=== PATIENT | male | born 1950 | race Caucasian/White ===

== ENCOUNTER 2023-10-28 14:14 | Outpatient (CLI) | payer MEDICARE, SELFPAY ==
--- NOTE | 2023-10-28 14:32 | XRR_ITS ---
PROCEDURE INFORMATION: Exam: XR Lumbosacral Spine Exam date and time: 10/28/2023 2:46 PM Age: 73 years old Clinical indication: Low back pain; Patient HX: Patient fell off roof in 2011 and has had chronic lower back pain since then. 2 years ago patient fell on ice and started having worse pain TECHNIQUE: Imaging protocol: Radiologic exam of the lumbosacral spine. Views: 2 or 3 views. COMPARISON: No relevant prior studies available. FINDINGS: Bones/joints: The bony structures demonstrate diffuse osteopenia. There is a compression fracture involving the superior endplate of the L2 vertebral body. The fracture comprises about 30% of vertebral body height. Vertebral body spurring can be seen at multiple levels along with facet arthropathy. Soft tissues: Unremarkable. XR/XR lumbar spine 2-3V* [id number] IMPRESSION: 1. L2 compression fracture of uncertain age with osteoporosis 2. Multilevel arthritic changes
== END 2023-10-28 14:15 | disposition home or self-care (01) ==
PROVIDERS: Visit Provider Orthopaedic Surgery
DX: M80.88XA Other osteoporosis with current pathological fracture, vertebra(e), initial encounter for fracture (principal); M48.062 Spinal stenosis, lumbar region with neurogenic claudication
CPT/HCPCS: 72100; 99204

== ENCOUNTER → 2024-01-08 10:22 | Outpatient (BNVA) | payer MEDICARE, SELFPAY | PROVIDERS: Visit Provider Orthopaedic Surgery | DX: M48.062 Spinal stenosis, lumbar region with neurogenic claudication | CPT/HCPCS: 99214 ==

== ENCOUNTER → 2024-08-19 13:05 | Outpatient (BNVA) | payer MEDICARE, SELFPAY | PROVIDERS: Visit Provider Orthopaedic Surgery | DX: M54.2 Cervicalgia (principal) | CPT/HCPCS: 72050; 80053; 81001; 85025; 87086; 99214 ==

== ENCOUNTER → 2024-10-01 11:50 | Outpatient (BNVA) | payer MEDICARE, SELFPAY | PROVIDERS: Visit Provider Family Medicine | DX: Z01.818 Encounter for other preprocedural examination (principal) | CPT/HCPCS: 80053; 81003; 85007; 85027; 93005 ==

== ENCOUNTER 2024-11-01 09:22 | Inpatient (IN) | payer MEDICARE, SELFPAY ==
--- NOTE | 2024-10-31 11:37 | ANES.PREANE2 ---
Pre-Anesthetic Assessment Height/Weight: Height 6 ft Preop Diagnosis: Cervical spondylosis Operation Date: 11/01/24 07:00 Proposed Procedures p Anterior Cervical Discectomy & Fusion ACDF w/ Anterior Interbody Fusion w/ Cage w/ Instrumentation w/ Allograft w/ Navigation(Not Applicable) - Pepe Lind, DO Was Beta Isis taken within 24 hours: N/A Was Clonidine taken within 24 hours: N/A Social No alcohol and No tobacco Exam alert, clear to auscultation bilaterally and regular rate & rhythm Airway Submandibular: within normal limits Cervical ROM: within normal limits Mallampati: Class III Dentition: full Comments: Comments: Few missing teeth, mouth opening appears limited Anesthetic Plan ASA status: 3 Anesthesia: General Other: Patient had delayed emergence from prior anesthetic. Patient reportedly was having a cardioversion for A-fib and was given a cocktail of front. Next thing he knew he woke up he had a temp of 105 with ice packs all over him NPO since yesterday evening History of A-fib, on chronic Eliquis. Last taken 10/26/2024 Labs reviewed and acceptable for procedure EKG showing A-fib Plan for general anesthesia Medications/Allergies Home Medications ?Medication ?Instructions ?Recorded ?Confirmed ?Last Taken ?Type acetaminophen 500 mg capsule 500 mg PO Q6H PRN Pain 10/28/23 10/29/24 3 Weeks Ago History ~10/08/24 apixaban 5 mg tablet (Eliquis) 5 mg PO BID 10/28/23 10/29/24 10/26/24 History calcium carbonate (Calcium 500) 500 mg PO .every other day 10/28/23 10/29/24 10/08/24 History cholecalciferol (vitamin D3) 25 25 mcg PO .every other day 10/28/23 10/29/24 10/08/24 History mcg (1,000 unit) capsule diltiazem HCl 180 mg 180 mg PO DAILY 10/28/23 10/29/24 10/27/24 History capsule,extended release 24 hr lysine 500 mg tablet (L-Lysine) 500 mg PO DAILY 10/28/23 10/29/24 10/10/24 History multivitamin (Daily Multi-Vitamin 1 tab PO DAILY 10/28/23 10/29/24 10/10/24 History tablet) omega 0-yvo-rxr-fish oil 1,000 mg 1 cap PO DAILY 10/28/23 10/29/24 10/10/24 History (120 mg-180 mg) capsule (Fish Oil) turmeric 400 mg capsule 400 mg PO DAILY 10/01/24 10/29/24 10/10/24 History Bone Growth Stimulator #1 ea 10/26/24 Unknown Rx Allergies Allergy/AdvReac Type Severity Reaction Status Date / Time fentanyl Allergy Mild Unknown Verified 10/01/24 12:05 [facility] Anesthesia Social History Smoking and tobacco/nicotine status: never used tobacco/nicotine Data Anesthesia Cardiac Studies: No Data to Display
[2024-11-01] VITALS (22 sets, daily range): BP systolic 107–171; BP diastolic 74–117; PULSE 60–94; RESP 13–23; TEMP 36.1–36.8; O2SAT 88–97; BMI 33.9
--- NOTE | 2024-11-01 | XR_ITS ---
WS: [id number] XR cervical spine 3V* [id number] REASON FOR EXAM: OR PICS FINDINGS: Plate and screw fixation with interbody fusion devices C3-C7. Surgical appliances are intact and in proper position and alignment. XR/XR cervical spine 3V* [id number] IMPRESSION: Anterior cervical fusion without abnormality as above.
[2024-11-01] MEDS: sodium chloride 0.9% 1,000 ML 30 ML IV (06:13)
--- NOTE | 2024-11-01 06:40 | W.PM.OPSFHP ---
Same Day Surgery H&P Indication for Procedure/HPI DATE OF PROCEDURE: November 01, 2024 CHIEF COMPLAINT/INDICATIONFOR SURGICAL PROCEDURE: Neck and arm pain PREOP DIAGNOSIS: Cervical stenosis with radiculopathy and myelopathy PLANNED PROCEDURE: Operation Date: 11/01/24 07:00 Proposed Procedures p Anterior Cervical Discectomy & Fusion ACDF w/ Anterior Interbody Fusion w/ Cage w/ Instrumentation w/ Allograft w/ Navigation(Not Applicable) - Pepe Lind, DO Medications/Allergies* Home Medications ?Medication ?Instructions ?Recorded ?Confirmed ?Type acetaminophen 500 mg capsule 500 mg PO Q6H PRN Pain 10/28/23 10/29/24 History apixaban 5 mg tablet (Eliquis) 5 mg PO BID 10/28/23 10/29/24 History calcium carbonate (Calcium 500) 500 mg PO .every other day 10/28/23 10/29/24 History cholecalciferol (vitamin D3) 25 25 mcg PO .every other day 10/28/23 10/29/24 History mcg (1,000 unit) capsule diltiazem HCl 180 mg 180 mg PO DAILY 10/28/23 10/29/24 History capsule,extended release 24 hr lysine 500 mg tablet (L-Lysine) 500 mg PO DAILY 10/28/23 10/29/24 History multivitamin (Daily Multi-Vitamin 1 tab PO DAILY 10/28/23 10/29/24 History tablet) omega 1-gfy-hav-fish oil 1,000 mg 1 cap PO DAILY 10/28/23 10/29/24 History (120 mg-180 mg) capsule (Fish Oil) turmeric 400 mg capsule 400 mg PO DAILY 10/01/24 10/29/24 History Allergies/Adverse Reactions Allergy/AdvReac Type Severity Reaction Status Date / Time fentanyl Allergy Mild Unknown Verified 10/01/24 12:05 Current Medications: Generic Name Dose Route Start Last Admin Trade Name Freq PRN Reason Stop Dose Admin Sodium Chloride 1,000 mls @ 30 mls/hr 11/01/24 06:00 11/01/24 06:13 Sodium Chloride 0.9% IV 11/02/24 05:59 30 mls/hr .Q24H TINO Administration Pertinent History/Comorbid Conditions* Social History Smoking and tobacco/nicotine status: never used tobacco/nicotine Pertinent Exam Findings alert, oriented x 3 and procedure specific exam findings Recommendations Surgery/Procedure today Coding Level of Care Code Acute Code for g Fwd
[2024-11-01] MEDS: ceFAZolin 2,000 mg SDV 2000 MG IVP ×3 (06:55→22:24)
[2024-11-01] MEDS: lidocaine-epi 1% 20 mL INJ INJECTION (07:40)
--- NOTE | 2024-11-01 09:44 | P.OP_ITS ---
Operative Report Date of procedure: November 01, 2024 Pre-op diagnosis: Cervical stenosis with myelopathy and radiculopathy Post-op diagnosis: same Procedure done: 1. Anterior discectomy C3/4 2. Anterior discectomy C4/5 3. Anterior diskectomy C5/6 4. Anterior discectomy C6/7 5. Insertion of cage C3/4 6. Insertion of cage C4/5 7. Insertion of cage C5/6 8. Insertion of Cage C6/7 9. Instrumentation with anterior plate from C3-C7 10. Use of allograft Surgeon: Pepe Lind DO Estimated blood loss (mL): 50 Procedure: 1. Anterior discectomy C3/4 2. Anterior discectomy C4/5 3. Anterior diskectomy C5/6 4. Anterior discectomy C6/7 5. Insertion of cage C3/4 6. Insertion of cage C4/5 7. Insertion of cage C5/6 8. Insertion of Cage C6/7 9. Instrumentation with anterior plate from C3-C7 10. Use of allograft The patient was taken to the operating room, where he underwent general endotracheal anesthesia without complications. He was then positioned supine on the operating table, and all areas of impingement were well padded. The arms were carefully padded and tucked at his sides. A roll was placed between the shoulder blades.. An x-ray was done to determine the appropriate level for the skin incision. The entire neck was then sterilely prepped and draped in the usual fashion. Neuromonitoring was attached prior to prepping. A transverse skin incision was made and carried down to the platysma muscle. This was then split in line with its fibers. Blunt dissection was carried down medial to the carotid sheath and lateral to the trachea and esophagus until the anterior cervical spine was visualized. A needle was placed into a disc and an x-ray was done to determine its location. The longus colli muscles were then elevated bilaterally with the electrocautery unit. Self-retaining retractors were placed deep to the longus colli muscle. Attention was brought to the C3/4 level that was confirmed on x-ray. A caspar pin was placed into the C3 vertebrae and the C4 vertebrae. The disk space was then distracted. The microscope was then brought in. A radical anterior discectomies were performed at C3/4. This included complete removal of the anterior annulus, nucleus, and posterior annulus. The posterior longitudinal ligament was removed as were the posterior osteophytes. Foraminotomies were then accomplished bilaterally. This was done using a high speed blair, kerrison rongeurs and curretes Once all of this was accomplished, the curved currette was used to check for any residual compression. The central canal was wide open as were the foramen. A high-speed bur was used to remove the cartilaginous endplates above and below the interspace. Bleeding cancellous bone was exposed. The disc space were measured and appropriate size cage were placed sterilely onto the field. Allograft graft was packed into the cages. The cage was then placed and there was good juxtaposition against the bleeding decorticated surfaces and good distraction of each interspace. Attention was brought to the next interspace. The Humboldt pins were removed. Bone wax was used to prevent any bleeding from occurring at the pin sites. Attention was brought to the C4/5 level that was confirmed on x-ray. A caspar pin was placed into the C4 vertebrae and the C5 vertebrae. The disk space was then distracted. The microscope was then brought in. A radical anterior discectomies were performed at C4/5. This included complete removal of the anterior annulus, nucleus, and posterior annulus. The posterior longitudinal ligament was removed as were the posterior osteophytes. Foraminotomies were then accomplished bilaterally. This was done using a high speed blair, kerrison ro ngeurs and curretes Once all of this was accomplished, the curved currette was used to check for any residual compression. The central canal was wide open as were the foramen. A high-speed bur was used to remove the cartilaginous endplates above and below the interspace. Bleeding cancellous bone was exposed. The disc space were measured and appropriate size cage were placed sterilely onto the field. Allograft graft was packed into the cages. The cage was then placed and there was good juxtaposition against the bleeding decorticated surfaces and good distraction of each interspace. Attention was brought to the next interspace. The Humboldt pins were removed. Bone wax was used to prevent any bleeding from occurring at the pin sites. Attention was brought to the C5/6 level that was confirmed on x-ray. A caspar pin was placed into the C5 vertebrae and the C6 vertebrae. The disk space was then distracted. The microscope was then brought in. A radical anterior discectomies were performed at C5/6. This included complete removal of the anterior annulus, nucleus, and posterior annulus. The posterior longitudinal ligament was removed as were the posterior osteophytes. Foraminotomies were then accomplished bilaterally. This was done using a high speed blair, kerrison rongeurs and curretes Once all of this was accomplished, the curved currette was used to check for any residual compression. The central canal was wide open as were the foramen. A high-speed bur was used to remove the cartilaginous endplates above and below the interspace. Bleeding cancellous bone was exposed. The disc space were measured and appropriate size cage were placed sterilely onto the field. Allograft graft was packed into the cages. The cage was then placed and there was good juxtaposition against the bleeding decorticated surfaces and good distraction of each interspace. Attention was brought to the next interspace. The Humboldt pins were removed. Bone wax was used to prevent any bleeding from occurring at the pin sites. Attention was brought to the C6/7 level that was confirmed on x-ray. A caspar pin was placed into the C6 vertebrae and the C7 vertebrae. The disk space was then distracted. The microscope was then brought in. A radical anterior discectomies were performed at C6/7. This included complete removal of the anterior annulus, nucleus, and posterior annulus. The posterior longitudinal ligament was removed as were the posterior osteophytes. Foraminotomies were then accomplished bilaterally. This was done using a high speed blair, kerrison rongeurs and curretes Once all of this was accomplished, the curved currette was used to check for any residual compression. The central canal was wide open as were the foramen. A high-speed bur was used to remove the cartilaginous endplates above and below the interspace. Bleeding cancellous bone was exposed. The disc space were measured and appropriate size cage were placed sterilely onto the field. Allograft graft was packed into the cages. The cage was then placed and there was good juxtaposition against the bleeding decorticated surfaces and good distraction of each interspace. The Humboldt pins were removed. Bone wax was used to prevent any bleeding from occurring at the pin sites. The appropriate size anterior cervical locking plate was chosen and bent into gentle lordosis. Two screws were then placed into each of the vertebral bodies at C3, C4, C5, C6 and C7. There was excellent purchase. A final x-ray was done confirming good position of the hardware and Cages. The locking screws were then applied, also with excellent purchase. Following a final copious irrigation, there was good hemostasis and no dural leaks. The carotid pulse was strong. The wounds were then closed in layers using 2-0 Vicryl suture for the platysma muscle, 2-0 Vicryl suture for the subcutaneous tissue, and 4-0 monocryl suture in a subcuticular skin closure. Glue was placed followed by application of a sterile dressing. The drain was hooked to bulb suction. A soft collar was applied. The patient was then carefully returned to the supine position on his hospital bed where he was reversed and extubated and taken to the recovery room having tolerated the procedure well.
--- NOTE | 2024-11-01 10:20 | PC.NURSE ---
0938 - pt able to move all ext
--- NOTE | 2024-11-01 10:34 | ANE.PACU2 ---
Inpatient post-anesthesia follow up: Airway intact: Yes Vital signs: Temperature 97.8 F Pulse Rate 85 Respiratory Rate 17 Blood Pressure 136/88 Pulse Oximetry 94 Oxygen Delivery Me thod Room Air Oxygen Flow Rate 8 Fraction of Inspir ed Oxygen Hydration adequate: Yes Nausea and vomiting: No Pain level: 1 Mental status: Baseline
--- NOTE | 2024-11-01 10:48 | PC.NURSE ---
1038- patient accepted into room 271 - via Adrienne RN - multiple family at side - no distress noted to pt upon this nurse exiting room - hemovac compressed with scant amount of serosang drainage noted - all ext moveable - BP 133/90 - pulse 64 - 92% RA - 97.6
[2024-11-01] MEDS: lactated ringers 1,000 ML 90 ML IV ×2 (11:09→21:11)
[2024-11-01] MEDS: calcium carbonate 500 mg Chew Tablet PO (11:09)
[2024-11-01] MEDS: dilTIAZem ER (24HR) 180 mg Capsule PO (14:12)
--- OUTSIDE RECORDS SUMMARY | 2024-11-01 14:57 | XMS_ITS ---
Author Organization [facility] Address [address] [place] [address] Care Team Providers Care Cell Builder Name Role Phone Robert Ruiz MD Primary Care Provider Anthony Jacob Unavailable [phone] Migration, Provider Unavailable Unavailable Allergies Allergen (clinical drug ingredient) Drug/Non Drug Allergy documented on EMR Reaction Allergy Type Onset Date Status fentanyl Fentanyl Unknown Drug Allergy Active midazolam Midazolam Unknown Drug Allergy Active REASON FOR VISIT [facility] Medications Medication SIG (Take, Route, Frequency, Duration) Notes Start Date End Date Status Multivitamin *Pick strength-f orm from [facility] for eRX* Active Vitamin D3 *Pick strength-f orm from [facility] for eRX* Active Tylenol Extra Strength *Pick strength-form from [facility] for eRX* Active dilTIAZem HCl *Pick strength-f orm from [facility] for eRX* Active Eliquis *Pick strength-f orm from [facility] for eRX* Active Turmeric *Pick strength-f orm from [facility] for eRX* Active Calcium 500 *Reorder from [facility] for eRx and Interaction Alerts* Active Fish Oil *Pick strength-f orm from [facility] for eRX* Active Lysine *Pick strength-f orm from [facility] for eRX* Active Encounters Encounter Location Date Provider Diagnosis Migrated_Facility 0 0 06/27/2024 Provider Migration Plan Of Treatment Next Appt Details Provider Name:Anthony Clements, 11/08/2024 09:40:00 AM, [address], [place], [address], Provider Name:Abdiaziz Ruiz, 0 12/20/2024 09:15:00 AM, [address] [place], [address], Progress Notes * Willy GLEZDOB:1950 (74 yo M)Acc No.[id number]:06/27/2024 Patient:?Willy GLEZ :1950???Age:73 Y???Sex:Male Address:[address] [place] [address] Subjective: * Chief Complaints: * ???[facility] * Medical History:? * Surgical History:?appendecto my arm surgery bunion removal double hernia surgery right hand surgery Skin Cancer Removal * Hospitalization/Major Diagno stic Procedure:? * Family History:?Migrated Fam chelsea History: : Cancer, D iabetes, H eart disease, H igh blood pressure.? * Social History:?Migrated Social History:?Migrated Social History: Alcoholic beverages? - No, C urrently on disability? - No, D rug or substance abuse? - No, M arital Status - , N onprescription drug use? - No, P articipation in detoxification or rehabilitation - No, S moking - No, W orking currently? - No. * Medications:?TakingCalcium 5 00 , Notes to Pharmacist: *Reorder from [facility] for eRx and Interaction Alerts*Turmeric , Notes to Pharmacist: *Pick strength-form from [facility] for eRX*dilTIAZem HCl , Notes to Pharmacist: *Pick strength-form from [facility] for eRX*Tylenol Extra Strength , Notes to Pharmacist: *Pick strength- form from [facility] for eRX*Fish Oil , Notes to Pharmacist: *Pick strength-form from [facility] for eRX*Vitamin D3 , Notes to Pharmacist: *Pick strength-form from [facility] for eRX*Lysine , Notes to Pharmacist: *Pick strength-form from [facility] for eRX*Eliquis , Notes to Pharmacist: *Pick strength-form from [facility] for eRX*Multivitamin , Notes to Pharmacist: *Pick strength-form from [facility] for eRX*Taking Calcium 500 , Notes to Pharmacist: *Reorder from [facility] for eRx and Interaction Alerts*Taking Turmeric , Notes to Pharmacist: *Pick strength-form from [facility] for eRX*Taking dilTIAZem HCl , Notes to Pharmacist: *Pick strength-form from [facility] for eRX*Taking Tylenol Extra Strength , Notes to Pharmacist: *Pick strength-form from [facility] for eRX*Taking Fish Oil , Notes to Pharmacist: *Pick strength-form from [facility] for eRX*Taking Vitamin D3 , Notes to Pharmacist: *Pick strength-form from [facility] for eRX*Taking Lysine , Notes to Pharmacist: *Pick strength-form from [facility] for eRX*Taking Eliquis , Notes to Pharmacist: *Pick strength-form from [facility] for eRX*Taking Multivitamin , Notes to Pharmacist: *Pick strength-form from [facility] for eRX* * Allergies:?Midazolam: Allerg yFentanyl: Allergy Objective: * Vitals:? * Physical Examination:? Assessment: Plan: * Treatment: * Procedure Codes:? * * Date:?
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
--- OUTSIDE RECORDS SUMMARY | 2024-11-01 14:57 | XMS_ITS ---
Author Organization [facility] Address [address] [place] [address] Care Team Providers Care Career Development Coordinator Name Role Phone Robert Ruiz MD Primary Care Provider Anthony Jacob Unavailable [phone] Allergies Allergen (clinical drug ingredient) Drug/Non Drug Allergy documented on EMR Reaction Allergy Type Onset Date Status fentanyl Fentanyl Unknown Drug Allergy Active midazolam Midazolam Unknown Drug Allergy Active REASON FOR VISIT 4-6 weeks w/ RK Medications Medication SIG (Take, Route, Frequency, Duration) Notes Start Date End Date Status Eliquis 5 MG 1 tablet Orally Twice a day Not-Taking Cholecalciferol 25 MCG (1000 UT) 1 capsule Orally every other day Not-Taking Vitamin D3 1000 UNIT 1 capsule Orally every other day *Pick strength-form from [facility] for eRX* Active Multivitamin 1 tab every [...] 6 hrs Active Turmeric *Pick strength-form from [facility] for eRX* Not-Taking Social History Tobacco Use: [...] (Standard) Question Answer Notes Tobacco use: Nonsmoker Vital Signs Height 72 in 09/06/2024 Weight 255 lbs 09/06/2024 BMI 34.58 kg/m2 09/06/2024 Height-cm 182.88 cm 09/06/2024 Weight-kg 115.67 kg 09/06/2024 Encounters Encounter Location Date Provider Diagnosis [facility] [address] [place] [address] 09/06/2024 Anthony Clements Chronic pain syndrom e G89.4 ; DDD (degenerative disc disease), cervical M50.30 ; Degeneration of intervertebral disc of lumbar region with discogenic back pain and lower extremity pain M51.362 ; Radiculopathy, lumbosacral region M54.17 ; Spondylosis without myelopathy or radiculopathy, lumbosacral region M47.817 and Spinal stenosis of lumbar region with neurogenic claudication M48.062 Assessments Encounter Date Diagnosis (ICD Code) Assessment Notes Treatment Notes Treatment Clinical Notes Section Notes 09/06/2024 Chronic pain syndrome (ICD-10 - G89.4) [...] lower extremity pain (ICD-10 - M51.362) 09/06/2024 Radiculopathy, lumbosacral region (ICD-10 - M54.17) 09/06/2024 Spondylosis without myelopathy or radiculopathy, lumbosacral region (ICD-10 - M47.817) 09/06/2024 Spinal stenosis of lumbar region with neurogenic claudication (ICD-10 - M48.062) 09/06/2024 Other I, Robert Ragland, am scribing for Anthony Clements. I, Anthony Clements, personally performed the services described in this documentation, as scribed by Robert Ragland, and it is both accurate and complete. Plan Of Treatment Treatment Notes Assessment Notes Chronic pain syndrome I had a nice visit with the [...] 2 months to reevaluate and proceed accordingly. Next Appt Details Follow Up: 2 Months, Reason: Provider Name:Anthony Clements, 11/08/2024 09:40:00 AM, [address] [facility] [place], [address], Provider Name:Abdiaziz Jefferson Joseph, 0 12/20/2024 09:15:00 AM, [address] [place], [address], Progress Notes * Luis F LGEZ:1950 (73 yo M)Acc No.[id number]:09/06/2024 Progress Notes Patient:?Willy GLEZ Provider:?Anthony Clements D.O. :1950???Age:73 Y???Sex:Male Vance e:09/06/2024 Address:[address], [place]-[address] Pcp:Robert Ruiz MD Check In:08:56 AM COMPOSITION STONE APPLICATOR Subjective: * Chief Complaints: * ???1. 4-6 weeks w/ RK. * HPI: ???Pain Details:?Pain Location?Neck, Mid Back, Right Upper Extremity, Headaches, Left Leg.?Duration?Greater than 10 years.?Onset?After falling from a roof.?Quality?Dull, Aching, Numbness.?Severity of pain at its worst?06/10.?Severity of pain at its best?11/08.?Severity of pain on medication?10/11.?Severity of average pain?12/09.?Severity of pain right now?11/08.?Worsening factors?Standing.?Relieving factors?Rest, Sitting.?Medication Details:?Do you have a lock box or safe place for medication away from minors and/or others??No.?Do you have any leftover pain medication building up at your house??No.?Do you understand that pain medication can be addicting and can cause overdose??Yes.?Do you feel you can REDUCE the amount of medication you take today??No.?Opioid Assessment Tools:?Last Urine Drug Screen?None.?Today's Rapid Urine Drug Screen?None.?[place] Prescription Monitoring Program?None.?Treatment History:?Caregivers you have visited?Family physician, Pain medicine physician, Chiropractor, Orthopedist, General surgeon.?Test undergone in the past?MRI scan or CT scan, X-rays, Nerve conduction study.?Past medication you have taken?NSAIDs; ibuprofen, Aleve, Tylenol, sports creams, Fentanyl/Actiq.?Treatments you have had?Rest, ice, heat, stretching, position changes, vdqi-ixe-negkjhe medications, heating pad,, Surgery.?Provider Note:? I've got a surgery planned with Dr. Lind, thanks for getting me in. He's doing a pretty big neck surgery on me. . * ROS:?General - Multi System:?Constitutional?Denies,?fever, recent weight gain, recent weight loss, fatigue.?Respiratory?Denies, wheezing, snoring,Reports, shortness of breath, cough.?Gastrointestinal?Denies, nausea, vomiting, constipation, abdominal pain.?Musculoskeletal?REPORTS, MID BACK PAIN, neck pain.?Neurologic?Reports, headaches.?Psychiatric?Denies, , anxiety, depression, panic attacks, suicidal thoughts.? [...] polyps or colon cancer. * Social History:?Tobacco Use:?Tobacco Control (Standard)?Tobacco use:?Nonsmoker ???Drugs/Alcohol:?Drugs?Have you used drugs other than those [...] , Notes to Pharmacist: *Pick strength-form from [employer] for eRX*, Not-Taking Cholecalciferol 25 MCG (1000 UT) Capsule 1 capsule Orally every other day , Not-Taking Eliquis 5 MG Tablet 1 tablet Orally Twice a day , Not-Taking Turmeric , Notes to Pharmacist: *Pick strength-form from [employer] for eRX*, Not-Taking Xarelto 20 MG Tablet 1 tablet with food Orally Once a day , Medication List reviewed and reconciled with the patient * Allergies:?Midazolam, Fentan yl. Objective: * Vitals:?Ht: 72 in, Wt:255lbs , Wt-k.67 kg, BMI:34.58Index, Ht-cm: 182.88 cm. * Examination: ???General Examination: [...] and mood appear grossly normal. Neurology - Coordination:?Antalgic gait? Neurology - Straight Leg Raising: Right: 60 degrees and negative. Left: 60 degrees and negative. Neurology - Motor Strength: Left LE strength - Flexors: 4+/5. Right LE strength - Flexors: 4+/5. Left LE strength - Extensors: 4+/5. Right LE strength - Extensors: 4+/5. B/L UE strength? 4+/5 proximal, 4/5 with superintendent gas distribution strength, FDO atrophy R>L Left LE Tone: Normal. Right LE Tone: Normal. Neurology - Sensation: few paresthesias down b/l LE in mainly L4-5 distributions Neurology - Deep Tendon Reflexes: Left patellar (DTR): 2. Right patellar (DTR): 2. Left achilles (DTR): 1. Right achilles (DTR): 1. ??? Assessment: * Assessment: 1.?Chronic pain syndrome - G 89.4 (Primary)???2.?DDD (degenerative disc disease), cervical - M50.30???3.?Degeneration of intervertebral disc of lumbar region with discogenic back pain and lower extremity pain - M51.362???4.?Radiculopathy, lumbosacral region - M54.17???5.?Spondylosis without myelopathy or radiculopathy, lumbosacral region - M47.817???6.?Spinal stenosis of lumbar region with neurogenic claudication - M48.062??? Plan: * Treatment: 2.?Others? Clinical Notes: I, Robert Ragland, am scribing for Anthony Clements. I, Anthony Clements, personally performed the services described in this documentation, as scribed by Robert Ragland, and it is both accurate and complete.?? * Follow Up:?2 Months Forms: * Billing Information: * Visit Code:? 38330 Office Visit, Est Pt., Level 4. * Procedure Codes:? Care Plan Details* * OSITION STONE APPLICATOR Sign off status: Completed true * Provider:?Anthony Clements D.O. Date:?01/2025 Generated for Cassi powell/Mark/Carlo on:?11/01/2024 02:56 PM COMPOSITION STONE APPLICATOR History and Physical Notes * HPI (History of Present Illness) Category Sub-Category Detail Notes Category Not es Pain Details Pain Location Neck, Mid Back, Right Upper Extremity, Headaches, Left Leg Duration Greater than 10 year s Onset After falling from a roof Quality Dull, Aching, Numbne ss Severity of pain at its worst 10/10 Severity of pain at its best 3/10 Severity of average pain 4/10 Severity of pain right now 3/10 Worsening factors Standing Relieving factors Rest, Sitting Severity of pain on medication 2/10 Medication Details Do you have a lock b ox or safe place for medication away from minors and/or others? No Do you have any leftover pain medication building up at your house? No Do you understand that pain medication c an be addicting and can cause overdose? Yes Do you feel you can REDUCE the amount of medication you take today? No Opioid Assessment Tools Last Urine Drug Screen None Today's Rapid Urine Drug Screen None [place] Prescription Monitoring Program None Treatment History Caregivers you have visited Loli arevalo physician, Pain medicine physician, Chiropractor, Orthopedist, General surgeon Test undergone in the past MRI scan or C T scan, X-rays, Nerve conduction study Past medication you have taken NSAIDs; i buprofen, Aleve, Tylenol, sports creams, Fentanyl/Actiq Treatments you have had Rest, ice, heat, stretching, position changes, daam-nue-ufnjknh medications, heating pad,, Surgery Examination Category Sub-Category Detail Notes Category Not [...] mood appear grossly normal. Neurology - Coordination: Antalgic gait Neurology - Straight Leg Raising: Right: 60 degrees and negative. Left: 60 degrees and negative. Neurology - Motor Strength: Left LE strength - Flexors: 4+/5. Right LE strength - Flexors: 4+/5. Left LE strength - Extensors: 4+/5. Right LE strength - Extensors: 4+/5. B/L UE strength 4+/5 proximal, 4/5 with superintendent gas distribution strength, FDO atrophy R>L Left LE Tone: Normal. Right LE Tone: Normal. Neurology - Sensation: few paresthesias down b/l LE in mainly L4-5 distributions Neurology - Deep Tendon Reflexes: Left patellar (DTR): 2. Right patellar (DTR): 2. Left achilles (DTR): 1. Right achilles (DTR): 1.
[2024-11-01] MEDS: ketorolac 30 mg/mL INJ IVP (17:52)
[2024-11-01] MEDS: docusate sodium 100 mg Capsule PO (17:53)
[2024-11-01] MEDS: HYDROcodone-acetaminophen 5-325 mg Tablet PO (17:53)
[2024-11-02 03:19] VITALS: BP 145/83; PULSE 85; RESP 17; TEMP 36.7; O2SAT 96
[2024-11-02 04:00] VITALS: BP 108/72; PULSE 72; RESP 18; TEMP 36.6; O2SAT 92
[2024-11-02 06:00] VITALS: BMI 33.9
[2024-11-02] MEDS: ceFAZolin 2,000 mg SDV 2000 MG IVP (06:06)
[2024-11-02 08:00] VITALS: BP 165/97; PULSE 70; RESP 18; TEMP 36.8; O2SAT 93
--- NOTE | 2024-11-02 08:18 | P.DS_ITS ---
Discharge Providers Date of Admission: 11/01/24 09:22 Date of Discharge: November 02, 2024 Attending Provider at Admission: Pepe Lind DO Attending Provider at Discharge: Pepe Lind DO Primary Care Provider: Robert Ruiz MD Reason for Visit Reason for Visit: M48.02 Physical Exam Narrative: Patient doing well no complaints this morning Urinary Catheter Management: Reilly: Cath Placed During This Visit: yes Reason for Continuing Indwelling Catheter: Perioperative Use in Selected Surgeries Urinary Catheter Date of Insertion: 11/01/24 Urinary Catheter Time of Insertion: 07:20 Discharge Data Studies Completed and Pending Completed Studies During Hospitalization Category Date Time Status XR cervical spine 3V* [id number] Routine Exams 11/01/24 00:00 Completed Radiology Impressions Cervical Spine X-Ray 11/01/24 00:00 IMPRESSION: Anterior cervical fusion without abnormality as above. Laboratory Results Blood Type O Negative 11/01/24 06:10 Rho(D) Type Rh negative 11/01/24 06:10 Antibody Screen Negative 11/01/24 06:10 Vitals Last Vital Signs Temp 98 F 11/02/24 04:00 Pulse 72 11/02/24 04:00 Resp 18 11/02/24 04:00 BP 108/72 11/02/24 04:00 Pulse Ox 92 11/02/24 04:00 O2 Del Method Nasal Cannula 11/02/24 04:00 O2 Flow Rate 2 11/02/24 04:00 Discharge Plan Discharge Patient Disposition: Home Condition: Stable Prescriptions: New hydrocodone-acetaminophen 5-325 mg tablet 1 - 2 tab PO .Q4-6H Qty: 40 0RF Continued acetaminophen 500 mg capsule 500 mg PO Q6H PRN (Reason: Pain) calcium carbonate [Calcium 500] 500 mg calcium (1,250 mg) tablet,chewable 500 mg PO .every other day cholecalciferol (vitamin D3) 25 mcg (1,000 unit) capsule 25 mcg PO .every other day diltiazem HCl 180 mg capsule,extended release 24hr 180 mg PO DAILY omega 3-nlj-ibc-fish oil [Fish Oil] 1,000 mg (120 mg-180 mg) capsule 1 cap PO DAILY lysine [L-Lysine] 500 mg tablet 500 mg PO DAILY multivitamin [Daily Multi-Vitamin] Tablet 1 tab PO DAILY turmeric 400 mg capsule 400 mg PO DAILY (DME) Bone Growth Stimulator See Rx Instructions .Route .MEDSUPPLY Qty: 1 0RF Rx Instructions: As directed Held Eliquis 5 mg tablet 5 mg PO BID Hold Instructions: Resume on 11/04/24. Discharge Orders: Discharge Order (Routine); Ordered 11/02/24 Ordered By: ePpe Lind Referrals: Pepe Lind, [Physician] - 11/16/24 1:45 pm ( ) Discharge Diet: Advance as tolerated Discharge Activity: Limit activity as instructed Patient Instructions: Acute Wound Care (DC), Opioid Safety, Post Anesthesia Care Activity Restrictions/Additional Instructions: Thank you for choosing [facility] for your care! The following is a list of instructions, from your provider, to follow upon your discharge to ensure you have the optimal recovery from your recent injury or surgery. Anterior Cervical Discectomy and Fusion: What to Expect at Home Your Recovery Follow-up care is a [place] part of your treatment and safety. Be sure to make and go to all appointments, and call your doctor if you are having problems. If you do not already have a follow-up appointment made, call office in the next 1-3 days to make follow up appointment for 2 weeks at [phone]. It is also a good idea to know your test results and keep a list of the medicines you take. You can expect your neck to feel stiff or sore after surgery. This should improve in the weeks after surgery. But it may take 4 to 6 months for you to get better completely. You may have trouble sitting or standing in one position for very long and may need pain medicine in the weeks after your surgery. It may take 4 to 6 weeks to get back to your usual activities, but it may depend on what kind of surgery you had. Your throat will feel sore and it may be difficult to swallow for the first 3 days after your surgery. As long as you can get liquids down without difficulty, this should slowly improve, otherwise call our office or seek medical attention if it becomes increasingly difficult to get anything down including liquids. Avoid hot liquids for first 3-5 days. Soothing foods/liquids such as jello, pudding, and luke warm soups are recommended until swallowing improves. Staying elevated will also help, it's advised you keep propped up at while sleeping to help reduce the swelling. You may use an ice pack directly on your incision or around it on the front of your neck, using a cloth to protect your skin; and a heating pad to the back of your neck as needed. Do not use over the counter anti-inflammatory medications (Ibuprofen, Motrin, Aleve, Advil, etc) Taking these meds after having a fusion can delay fusion rates, we recommend you avoid them for the first 3 months after your surgery[address] Dr. Lind may advise you to work with a physical therapist to strengthen the muscles around your neck and back - this will be discussed at your follow - up appointments. The pain or numbness you were having in your arms before surgery should get better or go away completely. This care sheet gives you a general idea about how long it will take for you to recover. But each person recovers at a different pace. Follow the steps below to get better as quickly as possible. How can you care for yourself at home? Activity ? Rest when you feel tired. Getting enough sleep will help you recover. ? Try to walk each day. Start by walking a little more than you did the day before. Bit by bit, increase the amount you walk. Walking boosts blood flow and helps prevent pneumonia and constipation. Walking may also decrease your muscle soreness after surgery. ? No lifting anything that is more that 5 pounds. This may include heavy grocery bags and milk containers, a heavy briefcase or backpack, cat litte r or dog food bags, a child, or a vacuum pecan cleaner. ? Avoid strenuous activities, such as bicycle riding, jogging, weightlifting, or aerobic exercise, until your doctor says it is okay. ? Do not drive until your follow-up visit after your surgery, or until your doctor says it isokay. ? Avoid taking long car trips for 2 to 4 weeks after surgery. Your neck may become tired and painful from sitting too long in one position. ? You will probably need to take 4 to 6 weeks off from work. It depends on the type of work you do and how you feel. ? You may have sex as soon as you feel able, but avoid positions that put stress on your neck or cause pain. Diet ? You can eat your normal diet. If your stomach is upset, try bland, low-fat foods like plain rice, broiled chicken, toast, and yogurt ? Drink plenty of fluids. If you have kidney, heart, or liver disease and have to limit fluids, talk with your doctor before you increase the amount of fluids you drink. ? You may notice that your bowel movements are not regular right after your surgery. This is common. Try to avoid constipation and straining with bowel movements. You may want to take a fiber supplement every day. If you have not had a bowel movement after a couple of days, ask your doctor about taking a mild laxative. Medicines ? Take pain medicines exactly as directed. 1. If Dr. Lind gave you a prescription medicine for pain, take lt as prescribed. 2. Do not take two or more pain medicines at the same time unless the doctor told you to. Many pain medicines have acetaminophen, which is Tylenol. Too much acetaminophen {Tylenol) can be harmful. 3. If you think your pain pill is making you sick to your stomach: 4. Take your pills after meals (unless your doctor has told you not to). 5. Ask your Dr. for a different pain pill. Incisioncare ? Remove your dressing 48hours after your surgery. Ok to shower and get the incision wet. Do not overtly wash your incision. When done, pad dry, leave open to air thereafter. Avoid creams and ointments directly on your incision. ? Your sutures in the incision will dissolve and fall out on their own. ? Keep the area clean and dry. You may cover it with a gauze bandage if it weeps or rubs against clothing; if you choose to do this, change the dressing everyday. Other instructions ? Use a heating pad, hot water bottle, or gentle massage on your back to reduce stiffness. Avoid putting heat on your incision When should you call for help? ? Call 911 anytime you think you may need emergency care. For example, call if: ? You pass out (lose consciousness). ? You have sudden chest pain and shortness of breath, or you cough upblood. ? You cannot swallow. ? You have severe pain in your neck or back. ? Call your Dr. or seek immediate medical care if: ? You have pain that does not get better after you take pain pills. ? You have loose stitches, or your incision comes open. ? You have blood or fluid draining from the incision. ? You have signs of infection, such as: 1. Increased pain, swelling, warmth, or redness. 2. Red streaks leading from the site. 3. Pus draining from the site. 4. Swollen lymph nodes in your neck or armpits. 5. A fever. ? You have severe pain in your arms. ? You have new or increased weakness or numbness in your arms. ? Watch closely for any changes in your health, and be sure to contact your doctor if: ? You do not have a bowel movement after taking a laxative. Discharge Attestations Time Spent in Discharge Care*: less than 30 min Quality Metrics Clinical Quality Measures [ No reported AMI, CVA or VTE this stay] Coding Level of Care Code Acute Code for Chg Fwd
[2024-11-02] MEDS: docusate sodium 100 mg Capsule PO (09:40)
[2024-11-02] MEDS: multivitamin therapeutic Tablet 1 TAB PO (09:40)
[2024-11-02] MEDS: dilTIAZem ER (24HR) 180 mg Capsule PO (09:40)
--- NOTE | 2024-11-02 09:59 | PC.CHAP ---
Pastoral Care Encounter/Spiritual Assessment Type of Contact [] Declined bilingual patient support caseworker visit [] Patient/Family/Request visit [] Outpatient visit [] Follow-up visit [] Physician referral [] Code/Alert [x] Routine visit [] Staff referral [] Actively dying [] Patient sleeping [x] Family support [] [] Out of room [] Palliative care [] [] Receiving care in room [] Pre-surgical visit [] Trauma [] Long length of stay [] ICU visit [] Other: Relational/Emotional Strength [x] Patient feels connected with others/family/visitors/staff [] Distress [] Loneliness/isolation [] Abandonment Spirituality of Patient [x] Person of Yarely [] Attends Baptism of their Yarely [x] Believes in Prayer [] Reads Bible or Jain materials [] There are Spiritual issues to be addressed Director Digital Marketing Interventions [x] Prayer [x] Active listening [x] Non-anxious presence [x] Spiritual/emotional support [] Crisis/trauma care [] Spiritual counseling [] Bereavement support [] Provided bereavement packet [] Provided Bible/devotional materials [] Provided toy/stuffed animal, coloring book to patient or family member [] Provided Communion [] Anointing/[place] [] Salvation [x] Completed spiritual assessment [] Other: Impact on Illness or Injury [] Angry [] Fearful [] Anxious [] Often cries [] Exhaustion [] Unable to work [] Unable to attend orthodox [] Unable to walk/stand [] Unable to read [] Unable to drive [] Unable to eat/drink [] Unable to sleep [] Unable to be with family [] Patient intubated [] Other: Summary Time spent with patient 5 min
--- NOTE | 2024-11-02 10:15 | PC.NURSE ---
Hemovac removed, cornell out, peripheral IVs out.
[2024-11-02 11:39] VITALS: BP 165/97; PULSE 70; RESP 18; TEMP 36.8; O2SAT 93
== END 2024-11-02 11:40 | disposition home or self-care (01) | DRG 472 ==
LOC: MEDSURG 09:47
PROVIDERS: Admitting Provider Orthopaedic Surgery; Visit Provider Orthopaedic Surgery
PROC: 0RB30ZZ Excision of Cervical Vertebral Disc, Open Approach (ICD-10-PCS; CPT 22551; principal; 2024-11-01 07:00)
DX: M48.02 Spinal stenosis, cervical region (principal); G99.2 Myelopathy in diseases classified elsewhere; M54.12 Radiculopathy, cervical region; I48.91 Unspecified atrial fibrillation; M25.78 Osteophyte, vertebrae; K08.409 Partial loss of teeth, unspecified cause, unspecified class; Z79.01 Long term (current) use of anticoagulants; Z79.899 Other long term (current) drug therapy; Z88.5 Allergy status to narcotic agent
CPT/HCPCS: 36415; 51702; 72040; 76000; 86850; 86900; 97116; 97161; C1713; C1763; C9359; J0131; J0690; J1100; J1171; J1885; J2371; J2405; J2704; J2710; J3490; J7030; J7120; J9999

== ENCOUNTER → 2024-11-16 13:45 | Outpatient (BNVA) | payer MEDICARE, SELFPAY | PROVIDERS: Visit Provider Orthopaedic Surgery | DX: M48.02 Spinal stenosis, cervical region (principal) | CPT/HCPCS: 99024 ==

== ENCOUNTER → 2024-12-14 10:47 | Outpatient (BNVA) | payer MEDICARE, SELFPAY | PROVIDERS: Visit Provider Orthopaedic Surgery | DX: M48.02 Spinal stenosis, cervical region (principal) | CPT/HCPCS: 72040; 99024 ==

== ENCOUNTER → 2025-01-25 10:32 | Outpatient (BNVA) | payer MEDICARE, SELFPAY | PROVIDERS: Visit Provider Orthopaedic Surgery | DX: Z01.818 Encounter for other preprocedural examination (principal); M48.062 Spinal stenosis, lumbar region with neurogenic claudication; Z98.1 Arthrodesis status | CPT/HCPCS: 36415; 72040; 80053; 81001; 85025; 99214 ==

== ENCOUNTER → 2025-03-02 10:05 | Outpatient (BNVA) | payer MEDICARE, SELFPAY | PROVIDERS: Visit Provider Family Medicine | DX: Z01.818 Encounter for other preprocedural examination (principal) | CPT/HCPCS: 80053; 81003; 85025 ==

== ENCOUNTER 2025-03-25 05:55 | Day surgery (SDC) | payer MEDICARE, SELFPAY ==
--- NOTE | 2025-03-24 12:40 | PC.NURSE ---
PATIENT CALLED FOR PREOP, PREOP COMPLETE. INFORMED THAT TOA WILL BE GIVEN LATER TODAY
[2025-03-25] VITALS (12 sets, daily range): BP systolic 123–150; BP diastolic 80–114; PULSE 44–63; RESP 10–18; TEMP 36.1–36.2; O2SAT 91–97; BMI 4881.9
--- NOTE | 2025-03-25 06:01 | ANES.PREANE2 ---
Pre-Anesthetic Assessment Height/Weight: Height 6 ft Preop Diagnosis: Lumbar stenosis with neurogenic claudication Operation Date: 03/25/25 08:00 Proposed Procedures p Lumbar Spine Decompression(Not Applicable) - Pepe Lind, DO Was Beta Isis taken within 24 hours: N/A Was Clonidine taken within 24 hours: N/A Social No alcohol and No tobacco Exam alert, oriented x 3 and clear to auscultation bilaterally A-fib Airway Submandibular: within normal limits Mallampati: Class III Dentition: full Comments: Comments: Denies any loose teeth, few missing teeth noted Anesthetic Plan ASA status: 3 Anesthesia: General Other: Patient has had delayed emergence in the past. Reportedly had a cardioversion for A-fib and when he woke up he had a temp of 105 with ice packs all over him. We will treat him like MH NPO since yesterday evening History of A-fib, on diltiazem and Eliquis. Documented fentanyl allergy, patient states that this was associated with his hyperthermia episode. Will start with Dilaudid S/p cervical fusion, grade 1 view with GlideScope 3. Tracheal stenosis noted. Plan on 7.0 tube Labs reviewed from 03/02/2025 and acceptable for procedure Plan for GETA Medications/Allergies Home Medications ?Medication ?Instructions ?Recorded ?Confirmed ?Last Taken ?Type acetaminophen 500 mg capsule 500 mg PO Q6H PRN Pain 10/28/23 03/24/25 2 Weeks Ago History ~03/10/25 apixaban 5 mg tablet (Eliquis) 5 mg PO BID 10/28/23 03/24/25 03/21/25 History Held on 11/02/24. Instructions: Resume on 11/04/24. calcium carbonate (Calcium 500) 500 mg PO .every other day 10/28/23 03/24/25 03/04/25 History cholecalciferol (vitamin D3) 25 25 mcg PO .every other day 10/28/23 03/24/25 03/04/25 History mcg (1,000 unit) capsule diltiazem HCl 180 mg 180 mg PO DAILY 10/28/23 03/24/25 03/25/25 06:00 History capsule,extended release 24 hr lysine 500 mg tablet (L-Lysine) 500 mg PO DAILY 10/28/23 03/24/25 03/04/25 History multivitamin (Daily Multi-Vitamin 1 tab PO DAILY 10/28/23 03/24/25 03/04/25 History tablet) omega 9-cjc-ytr-fish oil 1,000 mg 1 cap PO DAILY 10/28/23 03/24/25 03/04/25 History (120 mg-180 mg) capsule (Fish Oil) turmeric 400 mg capsule 400 mg PO DAILY 10/01/24 03/24/25 03/04/25 History Bone Growth Stimulator #1 ea 10/26/24 03/24/25 Unknown Rx Allergies Allergy/AdvReac Type Severity Reaction Status Date / Time fentanyl Allergy Mild Unknown Verified 03/25/25 06:32 midazolam Allergy Unknown Verified 03/25/25 06:32 [facility] Anesthesia Social History Smoking and tobacco/nicotine status: never used tobacco/nicotine 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
--- NOTE | 2025-03-25 06:26 | W.PM.OPSFHP ---
Same Day Surgery H&P Indication for Procedure/HPI DATE OF PROCEDURE: March 25, 2025 CHIEF COMPLAINT/INDICATIONFOR SURGICAL PROCEDURE: Back and left leg pain PREOP DIAGNOSIS: Lumbar stenosis with neurogenic claudication PLANNED PROCEDURE: Operation Date: 03/25/25 08:00 Proposed Procedures p Lumbar Spine Decompression(Not Applicable) - Pepe Lind, DO Medications/Allergies* Home Medications ?Medication ?Instructions ?Recorded ?Confirmed ?Type acetaminophen 500 mg capsule 500 mg PO Q6H PRN Pain 10/28/23 03/24/25 History apixaban 5 mg tablet (Eliquis) 5 mg PO BID 10/28/23 03/24/25 History Held on 11/02/24. Instructions: Resume on 11/04/24. calcium carbonate (Calcium 500) 500 mg PO .every other day 10/28/23 03/24/25 History cholecalciferol (vitamin D3) 25 25 mcg PO .every other day 10/28/23 03/24/25 History mcg (1,000 unit) capsule diltiazem HCl 180 mg 180 mg PO DAILY 10/28/23 03/24/25 History capsule,extended release 24 hr lysine 500 mg tablet (L-Lysine) 500 mg PO DAILY 10/28/23 03/24/25 History multivitamin (Daily Multi-Vitamin 1 tab PO DAILY 10/28/23 03/24/25 History tablet) omega 5-cig-tgq-fish oil 1,000 mg 1 cap PO DAILY 10/28/23 03/24/25 History (120 mg-180 mg) capsule (Fish Oil) turmeric 400 mg capsule 400 mg PO DAILY 10/01/24 03/24/25 History Allergies/Adverse Reactions Allergy/AdvReac Type Severity Reaction Status Date / Time fentanyl Allergy Mild Unknown Verified 03/02/25 10:08 midazolam Allergy Unknown Verified 03/24/25 12:30 Pertinent History/Comorbid Conditions* Social History Smoking and tobacco/nicotine status: never used tobacco/nicotine 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
[2025-03-25] MEDS: ceFAZolin 2,000 mg SDV 2000 MG IVP (07:49)
[2025-03-25] MEDS: lidocaine-epi 1% 20 mL INJ 10 ML INJECTION (08:30)
--- NOTE | 2025-03-25 10:25 | P.OP_ITS ---
Operative Report Date of procedure: March 25, 2025 Pre-op diagnosis: Lumbar stenosis with neurogenic claudication Post-op diagnosis: same Procedure done: 1. L1/2 laminectomy with partial facetectomy 2. L2/3 laminectomy with partial facetectomy 3. L3/4 laminectomy with partial facetectomy 4. L4/5 laminectomy with partial facetectomy Surgeon: Pepe Lind DO Estimated blood loss (mL): 20 Procedure: 1. L1/2 laminectomy with partial facetectomy 2. L2/3 laminectomy with partial facetectomy 3. L3/4 laminectomy with partial facetectomy 4. L4/5 laminectomy with partial facetectomy Patient is brought to the operative suite. After undergoing anesthesia they are placed in the prone position. All areas of impingement are well padded. Patient is then prepped and draped in the normal sterile fashion. A skin incision is made over the L1/2 level. This is confirmed under c-arm oscar dance. A series of dilators are passed and the tubular retractor is docked on the L1 lamina. A bovie is used to clear the soft tissue off the lamina and the L 1/2 facet joint. A high speed blair is then used to perform the laminectomy and take down the medial aspect of the L 1/2 facet joint. A kerrison rongeure was then used to take down the remaining lamina and smooth the edge of the laminectomy up to the point where the ligamentum flavum attaches. Attention was then brought to the medial aspect of the facet joint. The remaining medial aspect of the superior and inferior aspect of the facet joint were taken down with the kerrison from the pedicle of L1 to L 2. The facet joint had significant hypertrophy. Attention was then brought to the Ligamentum Flavum. The ligament was taken negrito n from the lamina of L1 to L2 and out medially to the remaining facet joint. The ligament was thick. The dura was then exposed. The dura was in good repair. The L1 nerve was then traced with a curette out the L1/2 foramen and found to be adequately decompressed. The L2 nerve was traced with a curette around the L2 pedicle. The lateral recess was opened with a kerrison helping to further deco mpress the L2 nerve. Wound is then irrigated copiously with saline and surgiflo is used to stop any bleeding. The tubular retractor is removed A skin incision is made over the L2/3 level. This is confirmed under c-arm guidance. A series of dilators are passed and the tubular retractor is docked on the L2 lamina. A bovie is used to clear the soft tissue off the lamina and the L 2/3 facet joint. A high speed blair is then used to perform the laminectomy and take down the medial aspect of the L 2/3 facet joint. A kerrison rongeure was then used to take down the remaining lamina and smooth the edge of the laminectomy up to the point where the ligamentum flavum attaches. Attention was then brought to the medial aspect of the facet joint. The remaining medial aspect of the superior and inferior aspect of the facet joint were taken down with the kerrison from the pedicle of L2 to L 3. The facet joint had significant hypertrophy. Attention was then brought to the Ligamentum Flavum. The ligament was taken down from the lamina of L2 to L3 and out medially to the remaining facet joint. The ligament was thick. The dura was then exposed. The dura was in good repair. The L2 nerve was then traced with a curette out the L2/3 foramen and found to be adequately decompressed. The L3 nerve was traced with a curette around the L3 pedicle. The lateral recess was opened with a kerrison helping to further decompress the L3 nerve. Wound is then irrigated copiously with saline and surgiflo is used to stop any bleeding. The tubular retractor is removed A skin incision is made over the L3/4 level. This is confirmed under c-arm guidance. A series of dilators are passed and the tubular retractor is docked on the L3 lamina. A bovie is used to clear the soft tissue off the lamina and the L 3/4 facet joint. A high speed blair is then used to perform the laminectomy and take down the medial aspect of the L 3/4 facet joint. A kerrison rongeure was then used to take down the remaining lamina and smooth the edge of the laminectomy up to the point where the ligamentum flavum attaches. Attention was then brought to the medial aspect of the facet joint. The remaining medial aspect of the superior and inferior aspect of the facet joint were taken down with the kerrison from the pedicle of L3 to L 4. The facet joint had significant hypertrophy. Attention was then brought to the Ligamentum Flavum. The ligament was taken down from the lamina of L3 to L4 and out medially to the remaining facet joint. The ligament was thick. The dura was then exposed. The dura was in good repair. The L4 nerve was then traced with a curette out the L3/4 foramen and found to be adequately decompressed. The L4 nerve was traced with a curette around the L4 pedicle. The lateral recess was opened with a kerrison helping to further decompress the L4 nerve. Wound is then irrigated copiously with saline and surgiflo is used to stop any bleeding. The tubular retractor is removed A skin incision is made over the L4/5 level. This is confirmed under c-arm guidance. A series of dilators are passed and the tubular retractor is docked on the L4 lamina. A bovie is used to clear the soft tissue off the lamina and the L 4/5 facet joint. A high speed blair is then used to perform the laminectomy and take down the medial aspect of the L 4/5 facet joint. A kerrison rongeure was then used to take down the remaining lamina and smooth the edge of the laminectomy up to the point where the ligamentum flavum attaches. Attention was then brought to the medial aspect of the facet joint. The remaining medial aspect of the superior and inferior aspect of the facet joint were taken down with the kerrison from the pedicle of L4 to L 5. The facet joint had significant hypertrophy. Attention was then brought to the Ligamentum Flavum. The ligament was taken down from the lamina of L4 to L5 and out medially to the remaining facet joint. The ligament was thick. The dura was then exposed. The dura was in good repair. The L4 nerve was then traced with a curette out the L4/5 foramen and found to be adequately decompressed. The L5 nerve was traced with a curette around the L5 pedicle. The lateral recess was opened with a kerrison helping to further decompress the L5 nerve. Wounds are then irrigated copiously with saline and surgiflo is used to stop any bleeding. The tubular retractor is removed and the wounds are closed with vicryl and monocryl suture. Steri strips were applied. A sterile dressing is then placed. Patient was then placed in the supine position and transferred to the PACU in stable condition.
--- NOTE | 2025-03-25 11:41 | ANE.PACU2 ---
Inpatient post-anesthesia follow up: Airway intact: Yes Vital signs: Temperature 97.1 F Pulse Rate 57 Respiratory Rate 18 Blood Pressure 125/87 Pulse Oximetry 96 Oxygen Delivery Me thod Room Air Oxygen Flow Rate 2 Fraction of Inspir ed Oxygen Hydration adequate: Yes Nausea and vomiting: No Pain level: 1 Mental status: Baseline
--- NOTE | 2025-03-25 15:58 | XR_ITS ---
WS: [id number] C-ARM RADIOGRAPHS LUMBAR SPINE; 5 IMAGES HISTORY: or pic decompression COMPARISON: None available. Intraoperative imaging during spinal decompression. Complete decompression seems to be at several levels. XR/XR lumbar spine 1V [id number] IMPRESSION: Intraoperative imaging during spinal decompression at numerous levels.
== END 2025-03-25 11:41 | disposition home or self-care (01) ==
PROVIDERS: Visit Provider Orthopaedic Surgery
PROC: (CPT 63005; principal; 2025-03-25 08:00)
DX: M48.062 Spinal stenosis, lumbar region with neurogenic claudication (principal); I48.91 Unspecified atrial fibrillation; Z79.01 Long term (current) use of anticoagulants; Z98.1 Arthrodesis status; J39.8 Other specified diseases of upper respiratory tract
CPT/HCPCS: 63047; 63048 ×3; 72020; 76000; J0131; J0690; J1100; J1171; J2371; J2405; J2704; J3490; J7030; J9999

== ENCOUNTER → 2025-04-07 09:57 | Outpatient (BNVA) | payer MEDICARE, SELFPAY | PROVIDERS: Visit Provider Orthopaedic Surgery | DX: Z98.890 Other specified postprocedural states (principal) | CPT/HCPCS: 99024 ==

== ENCOUNTER → 2025-05-05 10:20 | Outpatient (BNVA) | payer MEDICARE, SELFPAY | PROVIDERS: Visit Provider Orthopaedic Surgery | DX: Z98.890 Other specified postprocedural states (principal) | CPT/HCPCS: 99024 ==